=== PATIENT | male | born 1935 | race Caucasian/White ===

== ENCOUNTER → 2019-02-26 | Outpatient (CLI) | payer MEDICARE, OTHER ==
[~2019-02-26] MED LIST: ASCO500 PO; ASPI81EC; ATOR20; ATOR20 PO; COLCRYS0.6 MG PO; CRANBERRY CONC1 EACH PO; DONE5; FISH1000 PO; FLONASE ALLERG9.9 ML; HYDCHL12.5; HYDCHL12.5 PO; OCULAR NUTRITION PO; QUIN10; QUIN10 PO; Vitamin B Comple1 EA PO; WARF3; WARF3 PO
[2019-02-26 11:11] LABS: Stool Occult Bld Immuno 1 Positive (NEGATIVE)
== END | disposition home or self-care (01) ==
LOC: LAB SHORT 07:57 → LAB 07:57
PROVIDERS: Internal Medicine
DX: Z12.5 Encounter for screening for malignant neoplasm of prostate (principal); D50.0 Iron deficiency anemia secondary to blood loss (chronic); Z79.899 Other long term (current) drug therapy
CPT/HCPCS: 82274

== ENCOUNTER 2019-03-06 14:08 | Inpatient (IN) | payer MEDICARE, OTHER ==
[~2019-03-06] VITALS: Ht 177.8 cm; Wt 108.9 kg
[~2019-03-06 14:08] MED LIST changes: -ASPI81EC; -DONE5; -HYDCHL12.5 PO
[2019-03-06 14:59] LABS: BASOPHILS ABSOLUTE AUTO 0.02 K/mm3 (0.00-0.23); BASOPHILS PERCENT AUTO 0 % (0-2); EOSINOPHILS ABSOLUTE AUTO 0.22 K/mm3 (0.00-0.68); EOSINOPHILS PERCENT AUTO 4 % (0-6); Hematocrit 24.8 % (37.0-53.0); Hemoglobin 7.8 g/dL (13.5-17.5); IMMATURE GRAN ABSOLUTE AUTO 0.01 K/mm3 (0.00-0.10); IMMATURE GRAN PERCENT AUTO 0 % (0-1); LYMPHOCYTES ABSOLUTE AUTO 0.96 K/mm3 (0.84-5.20); LYMPHOCYTES PERCENT AUTO 19 % (21-46); MONOCYTES ABSOLUTE AUTO 0.43 K/mm3 (0.16-1.47); MONOCYTES PERCENT AUTO 9 % (4-13); Mean Corpuscular HGB Conc 31.5 g/dL (31.5-36.5); Mean Corpuscular Volume 102 fL (80-100); Mean Platelet Volume 10.4 fL (9.1-12.4); NEUTROPHILS ABSOLUTE AUTO 3.31 K/mm3 (1.96-9.15); NEUTROPHILS PERCENT AUTO 67 % (41-73); Platelet Count 141 K/mm3 (150-400); RDW Coefficient Variation 14.3 % (11.7-14.2); RDW Standard Deviation 53.6 fL (35.1-46.3); Red Blood Cell Count 2.44 M/mm3 (4.30-5.90); White Blood Cell Count 4.95 K/mm3 (4.00-11.30)
[2019-03-06 15:14] LABS: Alanine Aminotransfer (ALT/SGP 18 U/L (12-78); Albumin, Blood 3.5 g/dL (3.4-5.0); Albumin/Globulin Ratio 1.2 (0.8-1.8); Alk Phos 66 U/L (50-136); Anion Gap 3 mmol/L (6-16); Aspartate Aminotrans (AST/SGOT 27 U/L (12-37); Bilirubin, Total 0.7 mg/dL (0.1-1.0); Blood Urea Nitrogen 18 mg/dL (8-24); Bun/Creatinine Ratio 17.1 (12.0-20.0); CO2, Blood 31 mmol/L (21-32); Chloride, Blood 112 mmol/L (98-108); Creatinine, Blood 1.05 mg/dL (0.60-1.20); Globulin, Blood 2.9 g/dL (2.2-4.0); Glomerular Filtration Rate >60 (60-); Glucose, Blood 127 mg/dL (70-99); Potassium, Blood 3.7 mmol/L (3.5-5.5); Sodium, Blood 146 mmol/L (136-145); Total Protein, Blood 6.4 g/dL (6.4-8.2)
[2019-03-06 16:03] LABS: International Normalized Ratio 2.03; Prothrombin Time Results 20.2 Sec (9.7-11.5)
[2019-03-06] MEDS ORDERED: ALLO300 PO (18:29)
[2019-03-06] MEDS ORDERED: DONE5 PO (19:33)
[2019-03-06] MEDS ORDERED: HYDCHL12.5 PO (19:34)
[2019-03-06] MEDS ORDERED: Aspirin EC81 MG PO (19:46)
[2019-03-06 20:29] LABS: Hematocrit 24.6 % (37.0-53.0); Hemoglobin 7.6 g/dL (13.5-17.5)
[2019-03-07 03:56] LABS: BASOPHILS ABSOLUTE AUTO 0.03 K/mm3 (0.00-0.23); BASOPHILS PERCENT AUTO 1 % (0-2); EOSINOPHILS ABSOLUTE AUTO 0.26 K/mm3 (0.00-0.68); EOSINOPHILS PERCENT AUTO 4 % (0-6); Hematocrit 22.7 % (37.0-53.0); IMMATURE GRAN ABSOLUTE AUTO 0.02 K/mm3 (0.00-0.10); IMMATURE GRAN PERCENT AUTO 0 % (0-1); LYMPHOCYTES ABSOLUTE AUTO 1.29 K/mm3 (0.84-5.20); LYMPHOCYTES PERCENT AUTO 21 % (21-46); MONOCYTES ABSOLUTE AUTO 0.54 K/mm3 (0.16-1.47); MONOCYTES PERCENT AUTO 9 % (4-13); Mean Corpuscular HGB 31.3 pg (26.0-34.0); Mean Corpuscular HGB Conc 30.8 g/dL (31.5-36.5); Mean Corpuscular Volume 101 fL (80-100); Mean Platelet Volume 10.5 fL (9.1-12.4); NEUTROPHILS ABSOLUTE AUTO 3.89 K/mm3 (1.96-9.15); NEUTROPHILS PERCENT AUTO 65 % (41-73); Platelet Count 125 K/mm3 (150-400); RDW Coefficient Variation 14.2 % (11.7-14.2); Red Blood Cell Count 2.24 M/mm3 (4.30-5.90); White Blood Cell Count 6.03 K/mm3 (4.00-11.30)
[2019-03-07 04:10] LABS: International Normalized Ratio 2.22; Prothrombin Time Results 21.9 Sec (9.7-11.5)
--- NOTE | 2019-03-07 07:54 | NUR ---
SHIFT SUMMARY PT A&O X4 T/O SHIFT. PT ARRIVED TO UNIT FROM ER THIS SHIFT. PT STAND-PIVOT TO BED. PT IN ROOM UNTIL PT SETTLED. IV PROTONIX GTT THIS AM. 1 UNIT PRB TRANSFUSION STARTED PER DR. BAL. VSS; PT DENIED NAUSEA, PAIN, CP AND SOB T/O SHIFT. NO EMESIS OR BM. NPO POST MIDNIGHT. ORAL SWABS AT BEDSIDE. UP WITH FWW AND SBA; PT DENIES DIZZINESS. CPAP WHILE SLEEPING; CONT. OXIMETRY IN PLACE, SATS OVER 90% T/O SHIFT. TELEMTRY IN PLACE; SR/SB PER SALES REVIEW CLERK. CALL LIGHT IN REACH; PT DEMONSTRATES USE. REPORT TO DAY JORGE LUIS KAPADIA.
--- NOTE | 2019-03-07 14:37 | NUR ---
FFP STARTED JUST BEFORE PT TRANSPORTED TO OR WITH KANG PEPE VIA STRETCHER.
--- NOTE | 2019-03-07 14:58 | NUR ---
03/07/19 1458 Dev Scott 3-LEAD EKG REVIEWED WITH PHYSICIAN PRIOR TO START OF PROCEDURE.PATIENT CONFIRMS NPO STATUS AND AGREES WITH SCHEDULED PROCEDURE.History, Chart, Medications and Allergies reviewed before start of procedure. MONITOR INTACT WITH CONTINUOUS PULSE OXIMETRY AND INTERMITTENT BP. O2 VIA N/C INTACT THROUGHOUT SEDATION/PROCEDURE. Bite Block Placed
--- NOTE | 2019-03-07 17:46 | NUR ---
SHIFT SUMMARY OX3; 1 PERSON ASSIST WITH FWW TO BATHROOM. EGD WITH CLIPS PLACED TODAY; FAMILY ATTENTIVE AND AT BEDSIDE THROUGHOUT DAY. EATING AND DRINKING WELL. POSSIBLE DISCHARGE IN A.M.
--- NOTE | 2019-03-07 19:15 | NUR ---
OPENING NOTE RECEIVED REPORT FROM SILVESTRE KAPADIA AND ASSUMED PT CARE. PT IS RESTING IN BED, DENIES COMPLAINTS AT THIS TIME. VSS, SEE ASSESSMENT FOR DETAILS. PT STATES "I WAS HOPING TO GO HOME TODAY BUT MAYBE TOMORROW WILL BE THE DAY". EGD COMPLETED AND CLIPS PLACED TO SMALL BOWEL TODAY, NO S/SX OF BLEEDING AT THIS TIME. WILL CONTINUE TO MONITOR AND WILL CONTINUE PLAN OF CARE. CALL LIGHT AND BELONGINGS IN REACH.
[2019-03-07 22:11] LABS: Hematocrit 25.8 % (37.0-53.0); Hemoglobin 8.2 g/dL (13.5-17.5)
[2019-03-08 04:16] LABS: BASOPHILS ABSOLUTE AUTO 0.02 K/mm3 (0.00-0.23); BASOPHILS PERCENT AUTO 0 % (0-2); EOSINOPHILS ABSOLUTE AUTO 0.18 K/mm3 (0.00-0.68); EOSINOPHILS PERCENT AUTO 2 % (0-6); Hematocrit 26.2 % (37.0-53.0); Hemoglobin 8.2 g/dL (13.5-17.5); IMMATURE GRAN ABSOLUTE AUTO 0.02 K/mm3 (0.00-0.10); IMMATURE GRAN PERCENT AUTO 0 % (0-1); LYMPHOCYTES ABSOLUTE AUTO 0.88 K/mm3 (0.84-5.20); LYMPHOCYTES PERCENT AUTO 11 % (21-46); MONOCYTES ABSOLUTE AUTO 0.74 K/mm3 (0.16-1.47); MONOCYTES PERCENT AUTO 10 % (4-13); Mean Corpuscular HGB 31.1 pg (26.0-34.0); Mean Corpuscular HGB Conc 31.3 g/dL (31.5-36.5); Mean Corpuscular Volume 99 fL (80-100); Mean Platelet Volume 10.4 fL (9.1-12.4); NEUTROPHILS ABSOLUTE AUTO 5.91 K/mm3 (1.96-9.15); NEUTROPHILS PERCENT AUTO 76 % (41-73); Platelet Count 128 K/mm3 (150-400); RDW Coefficient Variation 15.3 % (11.7-14.2); RDW Standard Deviation 55.3 fL (35.1-46.3); Red Blood Cell Count 2.64 M/mm3 (4.30-5.90); White Blood Cell Count 7.75 K/mm3 (4.00-11.30)
[2019-03-08 04:37] LABS: Anion Gap 7 mmol/L (6-16); Blood Urea Nitrogen 18 mg/dL (8-24); Bun/Creatinine Ratio 16.1 (12.0-20.0); CO2, Blood 27 mmol/L (21-32); Chloride, Blood 110 mmol/L (98-108); Creatinine, Blood 1.12 mg/dL (0.60-1.20); Glomerular Filtration Rate >60 (60-); Glucose, Blood 98 mg/dL (70-99); Potassium, Blood 3.8 mmol/L (3.5-5.5); Sodium, Blood 144 mmol/L (136-145)
--- NOTE | 2019-03-08 06:18 | NUR ---
SHIFT SUMMARY: PATEINT HAD 1 EPISODE OF CONFUSION THIS SHIFT, TRYING TO GET OOB HE THOUGHT HE WAS LATE FOR A GOLF GAME. PATIENT EASILY REORIENTED, BED LOW AND LOCKED WITH EXIT ALARM ON. VSS, PATIENT REMOVES CPAP MASK IN HIS SLEEP SEVERAL TIMES.
[2019-03-08] MEDS ORDERED: OMEPRAZOLE MAGN20 MG PO (11:00)
[2019-03-08] MEDS ORDERED: Ferrous Sulfat325 M2 PO (11:02)
--- NOTE | 2019-03-08 12:50 | NUR ---
PT ALERT AND ORIENTED. VS STABLE. ORDERS FOR DISCHARGE. PT AND EDUCATED ABOUT DISCHARGE INSTRUCTIONS AND NEW MEDICATIONS. WRITTEN INFORMATION PROVIDED. IV'S REMOVED AND INTACT. PT TAKEN OUT BY WHEELCHAIR.
== END 2019-03-08 12:54 | disposition home or self-care (01) | DRG 378 ==
LOC: ER 14:08 → PCU 19:50
PROVIDERS: Physician Assistant; ADMIT Family Medicine
PROC: 0W3P8ZZ Control Bleeding in Gastrointestinal Tract, Via Natural or Artificial Opening Endoscopic (ICD-10-PCS; principal; 2019-03-06)
PROC: 30233N1 Transfusion of Nonautologous Red Blood Cells into Peripheral Vein, Percutaneous Approach (ICD-10-PCS; 2019-03-06)
PROC: 0DB68ZX Excision of Stomach, Via Natural or Artificial Opening Endoscopic, Diagnostic (ICD-10-PCS; 2019-03-06)
DX: K29.81 Duodenitis with bleeding (principal); Q21.1 Atrial septal defect; D62 Acute posthemorrhagic anemia; G47.33 Obstructive sleep apnea (adult) (pediatric); E78.5 Hyperlipidemia, unspecified; K31.7 Polyp of stomach and duodenum; I10 Essential (primary) hypertension; Z86.73 Personal history of transient ischemic attack (TIA), and cerebral infarction without residual deficits; Z79.01 Long term (current) use of anticoagulants; Z79.82 Long term (current) use of aspirin; Z80.42 Family history of malignant neoplasm of prostate; Z80.8 Family history of malignant neoplasm of other organs or systems
CPT/HCPCS: 36415; 36430; 74177; 80048; 80053; 85014; 85018; 85025; 85610; 85730; 86850; 86900; 86901; 86923; 93005; 93010; 94660; 94762; 96374-59; 99285-25; C9113; J1980; J2704; J7040; J7050; J7120; P9016; P9059; Q9967

== ENCOUNTER 2019-03-12 15:01 | Inpatient (IN) | payer MEDICARE, OTHER ==
[~2019-03-12] VITALS: Ht 177.8 cm; Wt 109.0 kg
[~2019-03-12 15:01] MED LIST changes: +ALLO300 PO; -ATOR20 PO; +Aspirin EC81 MG PO; +DONE5 PO; +Ferrous Sulfat325 M2 PO; +OMEPRAZOLE MAGN20 MG PO; -QUIN10 PO
[2019-03-12 15:32] LABS: BASOPHILS ABSOLUTE AUTO 0.03 K/mm3 (0.00-0.23); BASOPHILS PERCENT AUTO 1 % (0-2); EOSINOPHILS ABSOLUTE AUTO 0.26 K/mm3 (0.00-0.68); EOSINOPHILS PERCENT AUTO 4 % (0-6); Hematocrit 26.3 % (37.0-53.0); Hemoglobin 7.9 g/dL (13.5-17.5); IMMATURE GRAN ABSOLUTE AUTO 0.02 K/mm3 (0.00-0.10); IMMATURE GRAN PERCENT AUTO 0 % (0-1); LYMPHOCYTES ABSOLUTE AUTO 1.44 K/mm3 (0.84-5.20); LYMPHOCYTES PERCENT AUTO 22 % (21-46); MONOCYTES ABSOLUTE AUTO 0.74 K/mm3 (0.16-1.47); MONOCYTES PERCENT AUTO 11 % (4-13); Mean Corpuscular HGB 30.6 pg (26.0-34.0); Mean Platelet Volume 9.9 fL (9.1-12.4); NEUTROPHILS ABSOLUTE AUTO 4.09 K/mm3 (1.96-9.15); NEUTROPHILS PERCENT AUTO 62 % (41-73); Platelet Count 139 K/mm3 (150-400); RDW Coefficient Variation 15.7 % (11.7-14.2); RDW Standard Deviation 58.4 fL (35.1-46.3); Red Blood Cell Count 2.58 M/mm3 (4.30-5.90); White Blood Cell Count 6.58 K/mm3 (4.00-11.30)
[2019-03-12 15:33] LABS: Mean Corpuscular Volume 102 fL (80-100)
[2019-03-12 15:52] LABS: International Normalized Ratio 2.09; Prothrombin Time Results 20.7 Sec (9.7-11.5)
[2019-03-12 15:58] LABS: Alanine Aminotransfer (ALT/SGP 15 U/L (12-78); Albumin, Blood 3.3 g/dL (3.4-5.0); Albumin/Globulin Ratio 1.1 (0.8-1.8); Alk Phos 71 U/L (50-136); Anion Gap 6 mmol/L (6-16); Aspartate Aminotrans (AST/SGOT 17 U/L (12-37); Bilirubin, Total 0.8 mg/dL (0.1-1.0); Blood Urea Nitrogen 15 mg/dL (8-24); Bun/Creatinine Ratio 13.8 (12.0-20.0); CO2, Blood 26 mmol/L (21-32); Chloride, Blood 110 mmol/L (98-108); Creatinine, Blood 1.09 mg/dL (0.60-1.20); Globulin, Blood 3.1 g/dL (2.2-4.0); Glomerular Filtration Rate >60 (60-); Glucose, Blood 77 mg/dL (70-99); Potassium, Blood 3.7 mmol/L (3.5-5.5); Sodium, Blood 142 mmol/L (136-145); Total Protein, Blood 6.4 g/dL (6.4-8.2)
[2019-03-12] MEDS ORDERED: QUIN10 PO (18:40)
[2019-03-12] MEDS ORDERED: HYDCHL12.5 PO (18:41)
[2019-03-12] MEDS ORDERED: ATOR20 PO (18:42)
[2019-03-12] MEDS ORDERED: DONEPEZIL HCL5 M1 PO (18:42)
[2019-03-12] MEDS ORDERED: ALLO300 PO (18:44)
--- NOTE | 2019-03-12 20:00 | NUR ---
ASSUMED CARE OF PT AT 1915. REPORT RECEIVED AT BEDSIDE. PT PRESENTS IN BED. ON OXYGEN PER NASAL CANNULA WHEREAS SHE IS MAINTAINING SATURATIONS > 90 PERCENT. PT CURRENTLY BACK ON BIPAP. TOLERATING THIS FAIR. PT IS FIDGETY WITH HER HANDS DOES PASSIVELY TRY TO DISLODGE MASK THOUGH DOES NOT MAKE MUCH PROGRESS IN REMOVING MASK. PT ONLY CAN APPROPRIATELY ANSWER SIMPLIFIED QUESTIONS. WILL REVIEW CHART AND PLAN OF CARE.
--- NOTE | 2019-03-12 22:34 | NUR ---
PT TRANSPORTED TO [facility]. AGREES WITH PLANNED PROCEDURE. DR. GONZALEZ IN TO EVALUATE PT. AT BEDSIDE.
--- NOTE | 2019-03-12 22:49 | NUR ---
03/12/19 2249 [facility] CASE WITH DR. GONZALEZ. SEE ANETHESIA RECORD FOR CARE.
--- NOTE | 2019-03-13 01:19 | NUR ---
PCU IN ICU ASSUMED CARE PATIENT ALERT AND ORIENTED X4. VSS. NO S/SX OF BLEEDING AT THIS TIME. MD MARES TO ROOM. EDUCATED PATIENT ON SCOPE FINDINGS AND ENCOURAGED PATIENT TO TAKE CLEAR LIQUID FLUIDS AND INFORMED HIM THAT HE WOULD BE IN HOSPITAL FOR 3 DAYS ON PROTONIX GTT DUE TO GI BLEED (SEE PICTURES IN CHART). PATIENT DENIES PAIN AND IS IN NO ACUTE DISTRESS. REPORTED OFF TO ELMIRA KAPADIA.
--- NOTE | 2019-03-13 01:25 | NUR ---
ASSUMED CARE OF PT AT 0100 THIS AM. REPORT RECEIVED WELL THIS RN WAS IN ROOM WHEN PT ARRIVED AND WAS PART OF OR REPORT. PT ALERT AND ORIENTED UPON GREETING. IS CURRENTLY WEARING CPAP WITH 2 LITER NASAL CANNULA. ON PROTONIX DRIP AT 8MG PER HOUR. PT ABLE TO REST WITHOUT COMPLAINTS. NO ACTIVE S/S BLEEDING. PASSES FLATUS. WILL REVIEW CHART AND PLAN OF CARE FOR THIS PT.
--- NOTE | 2019-03-13 03:11 | NUR ---
SPOKE WITH DR GIL ON PHONE CONCERNING THAT PT HAD NOT RECEIVED UNIT PRBC'S PIOR TO GOING FOR SCOPE. OK RECEIVED TO DO AM LABS AND EVALUATE HBG BEFORE GIVING UNIT. PT CURRENTLY RESTING IN BED.
[2019-03-13 04:01] LABS: BASOPHILS ABSOLUTE AUTO 0.03 K/mm3 (0.00-0.23); BASOPHILS PERCENT AUTO 1 % (0-2); EOSINOPHILS ABSOLUTE AUTO 0.24 K/mm3 (0.00-0.68); EOSINOPHILS PERCENT AUTO 4 % (0-6); Hematocrit 23.1 % (37.0-53.0); Hemoglobin 7.1 g/dL (13.5-17.5); IMMATURE GRAN ABSOLUTE AUTO 0.01 K/mm3 (0.00-0.10); IMMATURE GRAN PERCENT AUTO 0 % (0-1); LYMPHOCYTES ABSOLUTE AUTO 1.03 K/mm3 (0.84-5.20); LYMPHOCYTES PERCENT AUTO 17 % (21-46); MONOCYTES ABSOLUTE AUTO 0.63 K/mm3 (0.16-1.47); MONOCYTES PERCENT AUTO 11 % (4-13); Mean Corpuscular HGB 30.9 pg (26.0-34.0); Mean Corpuscular HGB Conc 30.7 g/dL (31.5-36.5); Mean Corpuscular Volume 100 fL (80-100); Mean Platelet Volume 10.3 fL (9.1-12.4); NEUTROPHILS ABSOLUTE AUTO 4.02 K/mm3 (1.96-9.15); NEUTROPHILS PERCENT AUTO 67 % (41-73); Platelet Count 119 K/mm3 (150-400); RDW Coefficient Variation 15.8 % (11.7-14.2); RDW Standard Deviation 57.4 fL (35.1-46.3); White Blood Cell Count 5.96 K/mm3 (4.00-11.30)
[2019-03-13 04:14] LABS: International Normalized Ratio 1.88; Prothrombin Time Results 18.8 Sec (9.7-11.5)
[2019-03-13 04:18] LABS: Anion Gap 5 mmol/L (6-16); Blood Urea Nitrogen 14 mg/dL (8-24); Bun/Creatinine Ratio 12.8 (12.0-20.0); CO2, Blood 28 mmol/L (21-32); Calcium, Blood 7.9 mg/dL (8.5-10.1); Chloride, Blood 110 mmol/L (98-108); Creatinine, Blood 1.09 mg/dL (0.60-1.20); Glomerular Filtration Rate >60 (60-); Glucose, Blood 97 mg/dL (70-99); Potassium, Blood 3.6 mmol/L (3.5-5.5); Sodium, Blood 143 mmol/L (136-145)
--- NOTE | 2019-03-13 05:54 | NUR ---
PT RECEIVING ONE UNIT PRBC'S FOR HGB 7.1 THIS DOWN FROM PREVIOUS 7.9 HBG. PT MOVES HIMSELF ABOUT IN BED ON HIS OWN. USES CPAP HE DOES AT HOME WITH 2 LITER BLEED IN. PT DENIES PAIN OR DISTESS. NO S/S BLEEDING. WILL CONTINUE TO MONITOR PT, AND WILL REPORT OFF TO ONCOMING RN.
--- NOTE | 2019-03-13 08:58 | NUR ---
REPORT GIVEN TO KANG NUNEZ, WHOM WILL ASSUME CARE OF PT WHEN TRANSFERRED TO PCU ROOM 14.
--- NOTE | 2019-03-13 09:17 | NUR ---
PT TRANSFERRED TO PCU ROOM 14 VIA WHEELCHAIR WITH COLETTE KRAUSE.
--- NOTE | 2019-03-13 11:36 | NUR ---
PT HAD 6 BEAT RUN VTACH, PT ASYMPTOMATIC. SITTING IN BED. DENIES CONCERNS, VISITING WITH AT BEDSIDE. DISCCUSSED WITH DEVELOPMENTAL SPECIALIST.
[2019-03-13 13:24] LABS: Hematocrit 26.7 % (37.0-53.0); Hemoglobin 8.4 g/dL (13.5-17.5)
--- NOTE | 2019-03-13 18:13 | NUR ---
PT PLEASANT TODAY. DENIES PAIN. DID GET UP AND WALK SBA TO LEAD QA ANALYST AND BACK. SLOW, BUT PRETTY STEADY. PT IS AMBITIOUS. STATES STILL DARK STOOL. DOES TAKE IRON. REMAINS ON CLEAR LIQUID DIET. NO OTHER CONCERNS AT THIS TIME. BED IN LOW POSITION, PT IN CHAIR AT THIS TIME. CALL LITE IN REACH. CALLS APPROP
[2019-03-14 06:03] LABS: BASOPHILS ABSOLUTE AUTO 0.03 K/mm3 (0.00-0.23); BASOPHILS PERCENT AUTO 1 % (0-2); EOSINOPHILS ABSOLUTE AUTO 0.26 K/mm3 (0.00-0.68); EOSINOPHILS PERCENT AUTO 5 % (0-6); Hemoglobin 7.9 g/dL (13.5-17.5); IMMATURE GRAN ABSOLUTE AUTO 0.01 K/mm3 (0.00-0.10); IMMATURE GRAN PERCENT AUTO 0 % (0-1); LYMPHOCYTES PERCENT AUTO 18 % (21-46); MONOCYTES ABSOLUTE AUTO 0.49 K/mm3 (0.16-1.47); MONOCYTES PERCENT AUTO 9 % (4-13); Mean Corpuscular HGB 31.2 pg (26.0-34.0); Mean Corpuscular HGB Conc 31.6 g/dL (31.5-36.5); Mean Corpuscular Volume 99 fL (80-100); Mean Platelet Volume 10.6 fL (9.1-12.4); NEUTROPHILS PERCENT AUTO 68 % (41-73); Platelet Count 126 K/mm3 (150-400); RDW Coefficient Variation 15.5 % (11.7-14.2); RDW Standard Deviation 55.2 fL (35.1-46.3); Red Blood Cell Count 2.53 M/mm3 (4.30-5.90); White Blood Cell Count 5.49 K/mm3 (4.00-11.30)
--- NOTE | 2019-03-14 06:04 | NUR ---
SUMMARY: NO ACUTE CHANGE TONIGHT. PT VSS. NO EMESIS, BM TONIGHT. PT HAS DENIED PAIN, IS A/O. WORE HOME CPAP FOR SLEEP. TELE WNL. PROTONIX DRIP CONTINUES TO INFUSE. NO SAFETY CONCERNS AT THIS TIME. WILL REPORT TO DAY RN.
[2019-03-14 06:21] LABS: Anion Gap 6 mmol/L (6-16); Blood Urea Nitrogen 13 mg/dL (8-24); Bun/Creatinine Ratio 11.7 (12.0-20.0); CO2, Blood 27 mmol/L (21-32); Chloride, Blood 110 mmol/L (98-108); Creatinine, Blood 1.11 mg/dL (0.60-1.20); Glomerular Filtration Rate >60 (60-); Glucose, Blood 94 mg/dL (70-99); Phosphorus, Blood 3.1 mg/dL (2.5-4.9); Potassium, Blood 3.6 mmol/L (3.5-5.5); Sodium, Blood 143 mmol/L (136-145)
--- NOTE | 2019-03-14 09:15 | NUR ---
PT PLEASANT COOP A/O TALKATIVE. DENIES PAIN. H/R REG, NO MURMER NOTED. PER TELE: NSR AT 64. 1' BLOCK. LUNGS CLEAR, RESP EASY, UNLABORED. ON R.A. BT X4 LAST BM YEST. PT STATES DARK. VOIDS PER BATHROOM. BED IN LOW POSITOIN, CALL LITE IN REACH, CALLS APPROP. CONTINUES ON PROTONIX DRIP.
[2019-03-14 12:21] LABS: Hemoglobin 7.8 g/dL (13.5-17.5)
--- NOTE | 2019-03-14 18:37 | NUR ---
PT PLEASANT TODAY. HAS BEEN IN AND OUT OF CHAIR. SBA. WALKS TO BATHROOM DENIES SOB. STATES DR MARES TO ADVANCE DIET TO PUREE. STATES USING GENTLE INCREASE ON DIET. AT BEDSIDE. NO OTHER CONCERNS AT THIS TIME. PT IN CHAIR, CALL LITE IN REACH, CALLS APPROP
--- NOTE | 2019-03-14 18:48 | NUR ---
FITNESS SALES ASSOCIATE JOHN CALLED, PT C/O HEADACHE. I GAVE TYLENOL PER EMAR.
[2019-03-14 22:19] LABS: Hematocrit 24.7 % (37.0-53.0); Hemoglobin 7.8 g/dL (13.5-17.5)
--- NOTE | 2019-03-14 22:20 | NUR ---
Assumed care of pt at approx 1900. VSS, pt sitting in chair, alert and oriented. Pt in no apparent sign of distress. Pt responds to questions appropriately, uses call light appropriately. Assisted pt to bed, pt with steady gait, denies chest pain, denies sob with ambulation, denies dizzy or lightheadedness. Pt compliant with cpap at night and uses on his own. See shift assessment for detailed assessment. At approx 2100 this RN was notified by telephone recorder that pt converted to AFIB at 1830. This RN went to pt room, pt continues to deny any chest discomfort, denies dizzy or lightheadedness. HR in 70's per telephone recorder, barking machine feeder notifed of change in rhythm. Pt with a 3.1 second pause. Provider, Elroy Sharma notified of Afib and 3.1 second pause, pt remains asymptomatic. While on phone with Elroy, pt with HR touched 40 then recovered to 50's and 69's, Elroy aware and orders recieved. Upon entrance in room at this time, pt sleeping with cpap on. Pt has history of MARIPOSA. BP of 111/69, HR 69, pt remains asymptomatic. EKG performed per Elroy Sharma orders, bolus LR given per orders. Will continue to monitor and update as appropriate.
[2019-03-14 22:33] LABS: Anion Gap 6 mmol/L (6-16); Blood Urea Nitrogen 13 mg/dL (8-24); Bun/Creatinine Ratio 11.9 (12.0-20.0); CO2, Blood 26 mmol/L (21-32); Chloride, Blood 111 mmol/L (98-108); Creatinine, Blood 1.09 mg/dL (0.60-1.20); Glomerular Filtration Rate >60 (60-); Glucose, Blood 83 mg/dL (70-99); Magnesium, Blood 1.8 mg/dL (1.6-2.4); Potassium, Blood 3.4 mmol/L (3.5-5.5); Sodium, Blood 143 mmol/L (136-145)
--- NOTE | 2019-03-15 05:04 | NUR ---
SHIFT SUMMARY: PATIENT CONVERTED TO AFIB AT APPROX 1830, NO HX OF AFIB FOUND IN CHART OR PER PATIENT. PATIENT ASYMPTOMATIC, VSS, CLIENT APPLICATION SUPPORT SPECIALIST CALLED WITH ORDERS RECIEVED. APPROX 0000 PATIENT CONVERTED BACK TO NSR AFTER A FEW 3 SECOUND PAUSES. PATEINT HAS OCCASIONAL DROPS IN HR TO 40'S, PATIENT USUSALLY SLEEPING WITH THE OCCURRANCES (MARIPOSA?). NO OTHER ISSUES NOTED, CALL LIGHT WITHIN REACH, VSS, BED LOW AND LOCKED WITH EXIT ALARM ON.
--- NOTE | 2019-03-15 14:29 | NUR ---
REPORT CALLED TO KANG CARRILLO. PT WILL BE TRANSFERED TO [facility] WITH TELE.
--- NOTE | 2019-03-15 17:32 | NUR ---
SHIFT SUMMARY PT WAS A TRANSFER FROM PCU THIS AFTERNOON. PT HAS HAD NO COMPLAINTS SINCE TRANSFERRING TO ROOM 308. NO REQUESTS. IV PROTONIX INFUSING PER ORDERS. PLANS FOR DISCHARGE TOMORROW. CALL LIGHT IN REACH. WILL CONTINUE TO MONITOR AND REPORT TO ONCOMING RN.
[2019-03-16 04:52] LABS: BASOPHILS ABSOLUTE AUTO 0.03 K/mm3 (0.00-0.23); BASOPHILS PERCENT AUTO 1 % (0-2); EOSINOPHILS ABSOLUTE AUTO 0.33 K/mm3 (0.00-0.68); EOSINOPHILS PERCENT AUTO 6 % (0-6); Hematocrit 24.7 % (37.0-53.0); Hemoglobin 7.7 g/dL (13.5-17.5); IMMATURE GRAN ABSOLUTE AUTO 0.02 K/mm3 (0.00-0.10); IMMATURE GRAN PERCENT AUTO 0 % (0-1); LYMPHOCYTES ABSOLUTE AUTO 1.32 K/mm3 (0.84-5.20); LYMPHOCYTES PERCENT AUTO 22 % (21-46); MONOCYTES ABSOLUTE AUTO 0.56 K/mm3 (0.16-1.47); MONOCYTES PERCENT AUTO 10 % (4-13); Mean Corpuscular HGB 30.4 pg (26.0-34.0); Mean Corpuscular HGB Conc 31.2 g/dL (31.5-36.5); Mean Corpuscular Volume 98 fL (80-100); Mean Platelet Volume 10.3 fL (9.1-12.4); NEUTROPHILS ABSOLUTE AUTO 3.63 K/mm3 (1.96-9.15); NEUTROPHILS PERCENT AUTO 62 % (41-73); Platelet Count 131 K/mm3 (150-400); RDW Coefficient Variation 15.4 % (11.7-14.2); RDW Standard Deviation 54.9 fL (35.1-46.3); Red Blood Cell Count 2.53 M/mm3 (4.30-5.90); White Blood Cell Count 5.89 K/mm3 (4.00-11.30)
[2019-03-16 05:08] LABS: Anion Gap 4 mmol/L (6-16); Blood Urea Nitrogen 11 mg/dL (8-24); Bun/Creatinine Ratio 9.8 (12.0-20.0); CO2, Blood 27 mmol/L (21-32); Chloride, Blood 112 mmol/L (98-108); Creatinine, Blood 1.12 mg/dL (0.60-1.20); Glomerular Filtration Rate >60 (60-); Glucose, Blood 91 mg/dL (70-99); Potassium, Blood 3.7 mmol/L (3.5-5.5); Sodium, Blood 143 mmol/L (136-145)
--- NOTE | 2019-03-16 06:07 | NUR ---
SHIFT SUMMARY PATIENT IS ALERT AND ORIENTED, RECIEVING CONTINUOUS PROTONIX DRIP. USES CALL LIGHT APPROPRIATELY. PT IS ON TELE. PT SLEPT WITH CPAP ON. PLAN IS FOR POSSIBLE DISCHARGE TODAY.
--- NOTE | 2019-03-16 12:35 | NUR ---
DISCHARGE SUMMARY SUDARSHAN DENIED PAIN, SBA IN ROOM WITH WALKER. DECLINED SNF PLACEMENT DUE TO FEELING STRONG. LOOKED PRETTY STEADY ON HIS FEET. STATES HE FEELS PREPARED TO GO HOME. EDUCATED ON HOME DIET OF ADVANCE TOLERATED. ONE BLACK BM THIS SHIFT PER PT. EDUCATED ON HOLDING ASPIRIN AND COUMADIN UNTIL SEE PCP. NEW RX FOR PRILOSEC FAXED TO HIS PHARMACY. PAPERWORK REVIEWED, PIV REMOVED, LEFT WITH VIA WHEELCHAIR
== END 2019-03-16 11:52 | disposition home or self-care (01) | DRG 378 ==
LOC: ER 15:01 → ERHOLD 15:02 → ICUE 15:02 → PCU 22:25 → MEDS 03-15 14:46
PROVIDERS: Hospitalist; Internal Medicine Gastroenterology; Nurse Practitioner Acute Care; Physician Assistant; ADMIT Family Medicine
PROC: 0DJ08ZZ Inspection of Upper Intestinal Tract, Via Natural or Artificial Opening Endoscopic (ICD-10-PCS; principal; 2019-03-12 19:00)
PROC: 30233N1 Transfusion of Nonautologous Red Blood Cells into Peripheral Vein, Percutaneous Approach (ICD-10-PCS; 2019-03-13)
PROC: 30233K1 Transfusion of Nonautologous Frozen Plasma into Peripheral Vein, Percutaneous Approach (ICD-10-PCS; 2019-03-13)
DX: K29.81 Duodenitis with bleeding (principal); Q21.1 Atrial septal defect; I74.8 Embolism and thrombosis of other arteries; D62 Acute posthemorrhagic anemia; K22.2 Esophageal obstruction; K44.9 Diaphragmatic hernia without obstruction or gangrene; G47.33 Obstructive sleep apnea (adult) (pediatric); K64.9 Unspecified hemorrhoids; E78.5 Hyperlipidemia, unspecified; M10.9 Gout, unspecified; D69.6 Thrombocytopenia, unspecified; I10 Essential (primary) hypertension; G31.84 Mild cognitive impairment of uncertain or unknown etiology
CPT/HCPCS: 36415; 80048; 80053; 80069; 82272; 82330; 83735; 85014; 85018; 85025; 85610; 86850; 86900; 86901; 86923; 93005; 93010; 94660; 94762; 96365; 96366; 99285-25; C9113; J0171; J0360; J2405; J2704; J3010; J3475; J3480; J7120; P9016; P9059

== ENCOUNTER 2019-04-03 12:12 | Emergency (ER) | payer MEDICARE, OTHER ==
[~2019-04-03] VITALS: Ht 177.8 cm; Wt 103.4 kg
[~2019-04-03 12:12] MED LIST changes: +ATOR20 PO; +DONEPEZIL HCL5 M1 PO; +HYDCHL12.5 PO; +QUIN10 PO
[2019-04-03 12:57] LABS: BASOPHILS ABSOLUTE AUTO 0.03 K/mm3 (0.00-0.23); BASOPHILS PERCENT AUTO 1 % (0-2); EOSINOPHILS ABSOLUTE AUTO 0.27 K/mm3 (0.00-0.68); EOSINOPHILS PERCENT AUTO 4 % (0-6); Hematocrit 27.8 % (37.0-53.0); Hemoglobin 8.4 g/dL (13.5-17.5); IMMATURE GRAN ABSOLUTE AUTO 0.01 K/mm3 (0.00-0.10); IMMATURE GRAN PERCENT AUTO 0 % (0-1); LYMPHOCYTES ABSOLUTE AUTO 1.46 K/mm3 (0.84-5.20); LYMPHOCYTES PERCENT AUTO 23 % (21-46); MONOCYTES ABSOLUTE AUTO 0.68 K/mm3 (0.16-1.47); MONOCYTES PERCENT AUTO 11 % (4-13); Mean Corpuscular HGB 29.7 pg (26.0-34.0); Mean Corpuscular HGB Conc 30.2 g/dL (31.5-36.5); Mean Corpuscular Volume 98 fL (80-100); Mean Platelet Volume 10.6 fL (9.1-12.4); NEUTROPHILS ABSOLUTE AUTO 3.91 K/mm3 (1.96-9.15); NEUTROPHILS PERCENT AUTO 61 % (41-73); Platelet Count 159 K/mm3 (150-400); RDW Standard Deviation 54.5 fL (35.1-46.3); Red Blood Cell Count 2.83 M/mm3 (4.30-5.90); White Blood Cell Count 6.36 K/mm3 (4.00-11.30)
[2019-04-03 13:13] LABS: International Normalized Ratio 1.08; Prothrombin Time Results 11.4 Sec (9.7-11.5)
[2019-04-03 13:17] LABS: Alanine Aminotransfer (ALT/SGP 12 U/L (12-78); Albumin, Blood 3.6 g/dL (3.4-5.0); Albumin/Globulin Ratio 1.1 (0.8-1.8); Alk Phos 71 U/L (50-136); Anion Gap 7 mmol/L (6-16); Aspartate Aminotrans (AST/SGOT 21 U/L (12-37); Bilirubin, Total 0.5 mg/dL (0.1-1.0); Blood Urea Nitrogen 16 mg/dL (8-24); Bun/Creatinine Ratio 14.8 (12.0-20.0); CO2, Blood 25 mmol/L (21-32); Calcium, Blood 8.2 mg/dL (8.5-10.1); Chloride, Blood 109 mmol/L (98-108); Creatinine, Blood 1.08 mg/dL (0.60-1.20); Globulin, Blood 3.4 g/dL (2.2-4.0); Glomerular Filtration Rate >60 (60-); Glucose, Blood 75 mg/dL (70-99); Magnesium, Blood 1.9 mg/dL (1.6-2.4); Potassium, Blood 4.2 mmol/L (3.5-5.5); Sodium, Blood 141 mmol/L (136-145)
[2019-04-03 18:45] LABS: Hemoglobin 7.7 g/dL (13.5-17.5)
== END 2019-04-03 19:55 | disposition short-term general hospital (02) ==
LOC: ER 12:12
PROVIDERS: Emergency Medicine; Physician Assistant
DX: K92.2 Gastrointestinal hemorrhage, unspecified (principal); D50.0 Iron deficiency anemia secondary to blood loss (chronic); I10 Essential (primary) hypertension; M10.9 Gout, unspecified; E78.5 Hyperlipidemia, unspecified; Z86.73 Personal history of transient ischemic attack (TIA), and cerebral infarction without residual deficits; Z79.899 Other long term (current) drug therapy
CPT/HCPCS: 36415; 80053; 82272; 83690; 83735; 85014; 85018; 85025; 85610; 85730; 86850; 86900; 86901; 93005; 93010; 96365; 96366; 96376; 99285-25; C9113

== ENCOUNTER 2019-05-13 05:04 | Emergency (ER) | payer MEDICARE, OTHER ==
[~2019-05-13] VITALS: Ht 177.8 cm; Wt 107.0 kg
[2019-05-13 05:54] LABS: BASOPHILS ABSOLUTE AUTO 0.04 K/mm3 (0.00-0.23); BASOPHILS PERCENT AUTO 1 % (0-2); EOSINOPHILS ABSOLUTE AUTO 0.22 K/mm3 (0.00-0.68); EOSINOPHILS PERCENT AUTO 3 % (0-6); Hematocrit 30.8 % (37.0-53.0); Hemoglobin 9.2 g/dL (13.5-17.5); IMMATURE GRAN ABSOLUTE AUTO 0.02 K/mm3 (0.00-0.10); IMMATURE GRAN PERCENT AUTO 0 % (0-1); LYMPHOCYTES ABSOLUTE AUTO 1.34 K/mm3 (0.84-5.20); LYMPHOCYTES PERCENT AUTO 19 % (21-46); MONOCYTES ABSOLUTE AUTO 0.66 K/mm3 (0.16-1.47); MONOCYTES PERCENT AUTO 9 % (4-13); Mean Corpuscular HGB 26.4 pg (26.0-34.0); Mean Corpuscular HGB Conc 29.9 g/dL (31.5-36.5); Mean Corpuscular Volume 89 fL (80-100); Mean Platelet Volume 10.7 fL (9.1-12.4); NEUTROPHILS ABSOLUTE AUTO 4.78 K/mm3 (1.96-9.15); NEUTROPHILS PERCENT AUTO 68 % (41-73); Platelet Count 142 K/mm3 (150-400); RDW Coefficient Variation 15.9 % (11.7-14.2); RDW Standard Deviation 51.5 fL (35.1-46.3); Red Blood Cell Count 3.48 M/mm3 (4.30-5.90); White Blood Cell Count 7.06 K/mm3 (4.00-11.30)
[2019-05-13 06:13] LABS: Alanine Aminotransfer (ALT/SGP 11 U/L (12-78); Albumin, Blood 3.7 g/dL (3.4-5.0); Albumin/Globulin Ratio 1.1 (0.8-1.8); Alk Phos 92 U/L (50-136); Anion Gap 6 mmol/L (6-16); Aspartate Aminotrans (AST/SGOT 25 U/L (12-37); Blood Urea Nitrogen 14 mg/dL (8-24); Bun/Creatinine Ratio 12.3 (12.0-20.0); CO2, Blood 26 mmol/L (21-32); Calcium, Blood 8.3 mg/dL (8.5-10.1); Chloride, Blood 112 mmol/L (98-108); Creatinine, Blood 1.14 mg/dL (0.60-1.20); Globulin, Blood 3.5 g/dL (2.2-4.0); Glomerular Filtration Rate >60 (60-); Glucose, Blood 107 mg/dL (70-99); Potassium, Blood 3.8 mmol/L (3.5-5.5); Sodium, Blood 144 mmol/L (136-145); Total Protein, Blood 7.2 g/dL (6.4-8.2)
[2019-05-13 06:14] LABS: International Normalized Ratio 1.11; Prothrombin Time Results 11.7 Sec (9.7-11.5)
[2019-05-13] MEDS ORDERED: Colace100 MG PO (06:34)
== END 2019-05-13 06:50 | disposition home or self-care (01) ==
LOC: ER 05:04
PROVIDERS: Emergency Medicine
DX: K60.2 Anal fissure, unspecified (principal); K92.1 Melena; Z79.899 Other long term (current) drug therapy; I10 Essential (primary) hypertension; E78.5 Hyperlipidemia, unspecified; Z86.73 Personal history of transient ischemic attack (TIA), and cerebral infarction without residual deficits; I48.91 Unspecified atrial fibrillation; Z85.828 Personal history of other malignant neoplasm of skin; Z85.46 Personal history of malignant neoplasm of prostate
CPT/HCPCS: 80053; 83605; 85025; 85610; 99283

== ENCOUNTER 2019-05-19 14:46 | Inpatient (IN) | payer MEDICARE, OTHER ==
[~2019-05-19] VITALS: Ht 177.8 cm; Wt 106.0 kg
[~2019-05-19 14:46] MED LIST changes: +Colace100 MG PO
[2019-05-19 15:07] LABS: PCO2 Arterial 43.2 mmHg (35-45); PO2 Arterial 130 mmHg (80-100); pH Blood Arterial 7.41 (7.35-7.45)
[2019-05-19 15:19] LABS: BASOPHILS ABSOLUTE AUTO 0.04 K/mm3 (0.00-0.23); BASOPHILS PERCENT AUTO 0 % (0-2); EOSINOPHILS ABSOLUTE AUTO 0.18 K/mm3 (0.00-0.68); EOSINOPHILS PERCENT AUTO 2 % (0-6); Hemoglobin 9.2 g/dL (13.5-17.5); IMMATURE GRAN PERCENT AUTO 1 % (0-1); LYMPHOCYTES ABSOLUTE AUTO 2.75 K/mm3 (0.84-5.20); LYMPHOCYTES PERCENT AUTO 29 % (21-46); MONOCYTES ABSOLUTE AUTO 0.81 K/mm3 (0.16-1.47); MONOCYTES PERCENT AUTO 9 % (4-13); Mean Corpuscular HGB 26.8 pg (26.0-34.0); Mean Corpuscular HGB Conc 29.7 g/dL (31.5-36.5); Mean Corpuscular Volume 90 fL (80-100); Mean Platelet Volume 11.4 fL (9.1-12.4); NEUTROPHILS ABSOLUTE AUTO 5.54 K/mm3 (1.96-9.15); NEUTROPHILS PERCENT AUTO 59 % (41-73); Platelet Count 155 K/mm3 (150-400); RDW Coefficient Variation 18.4 % (11.7-14.2); RDW Standard Deviation 55.6 fL (35.1-46.3); Red Blood Cell Count 3.43 M/mm3 (4.30-5.90); White Blood Cell Count 9.42 K/mm3 (4.00-11.30)
[2019-05-19 15:34] LABS: International Normalized Ratio 1.1; Prothrombin Time Results 11.6 Sec (9.7-11.5)
[2019-05-19 15:41] LABS: Alanine Aminotransfer (ALT/SGP 15 U/L (12-78); Albumin, Blood 3.6 g/dL (3.4-5.0); Alk Phos 88 U/L (50-136); Anion Gap 8 mmol/L (6-16); Aspartate Aminotrans (AST/SGOT 24 U/L (12-37); Bilirubin, Total 0.7 mg/dL (0.1-1.0); Blood Urea Nitrogen 18 mg/dL (8-24); Bun/Creatinine Ratio 15.7 (12.0-20.0); CO2, Blood 26 mmol/L (21-32); Calcium, Blood 8.3 mg/dL (8.5-10.1); Chloride, Blood 110 mmol/L (98-108); Creatinine, Blood 1.15 mg/dL (0.60-1.20); Ethanol (Alcohol), Blood, Med <3 mg/dL; Globulin, Blood 3.5 g/dL (2.2-4.0); Glomerular Filtration Rate >60 (60-); Glucose, Blood 136 mg/dL (70-99); Potassium, Blood 3.9 mmol/L (3.5-5.5); Sodium, Blood 144 mmol/L (136-145); Total Protein, Blood 7.1 g/dL (6.4-8.2)
[2019-05-19 23:33] LABS: U Amphetamine Screen Not Detected; U Barbituate Screen Not Detected; U Benzodiazapine Screen Not Detected; U Buprenorphine Screen Not Detected; U Cannabinoids Screen Not Detected; U Cocaine Screen Not Detected; U Methadone Screen Not Detected; U Methamphetamine Screen Not Detected; U Opiates Screen Not Detected; U Oxycodone Screen Not Detected; U Phencyclidine Screen Not Detected; U Propoxyphene Screen Not Detected
--- NOTE | 2019-05-19 23:37 | NUR ---
provider communication 0609 DR. BENITEZ CALLED TO CLARIFY SUBLIMAZE PATCH ORDER, MADE AWARE OF PHARMASICT'S CONCERNS OF STARTING A PATCH WHEN PT NARCOTIC NAIVE; CURRENT PAIN AND RESPIRATORY MANAGEMENT DISCUSSED. ORDER TO DC PATCH RECIEVED.
--- NOTE | 2019-05-20 04:09 | NUR ---
SHIFT SUMMARY PT A&O X4 T/O SHIFT. S/P L RIB FX'S. PAIN MANAGED PER EMAR. O2 VIA NC WHEN AWAKE AT 2L, 1L BLEED INTO CPAP WHEN ASLEEP. CONT. OX IN PLACE; O2 SATS OVER 92%. ABRASIONS ON EXT CLEANED AND DRESSED. BILAT HEELS FLOATED. CALL LIGHT IN REACH. WCTM UNTIL REPORT TO DAY SHIFT RN.
--- NOTE | 2019-05-20 07:08 | NUR ---
pt voided [address] camargo by to see him this am
--- NOTE | 2019-05-20 08:54 | NUR ---
DR RUDOLPH BY TO SEE PT STARTED PT ON ORAL PAIN MEDS ALSO PLACED PAS ON R FOOT AND L LEG ELEV PT TO 45 DEGREE TO EAT PT UNABLE TO MYRIAM 90 DUE TO PAIN PLACED ON NC TO EAT BREAKFAST ENCOURAGED FOOD WITH PO PAIN MEDS PT ALSO TO HAVE CHEST XRAY
--- NOTE | 2019-05-20 10:25 | NUR ---
pt oob with physical therapy biox on 2 l nc with movement was 80% increased to 5 l at 95% used pillow to splint
--- NOTE | 2019-05-20 11:17 | NUR ---
pt went into bathroom to void with ot and back into the chair biox 95-96% pt visiting with
--- NOTE | 2019-05-20 12:06 | NUR ---
pt eating lunch po pain meds given pt wanting to get back into bed
--- NOTE | 2019-05-20 12:47 | NUR ---
put pt back on his cpap biox on 3l decreased when asleep was 88% currently 94-95% cpap has 2l bleed in
--- NOTE | 2019-05-20 15:15 | NUR ---
pt sleeping family at bedside
--- NOTE | 2019-05-20 18:27 | NUR ---
pt coughing after his ice cream stated he had phlegm stuck pt had a pillow for splinting asked pt if he feels like he needs to void last void was around 1130 encourage oral intake to thin the phlegm
--- NOTE | 2019-05-20 21:00 | NUR ---
FAMILY REPORTS PT HAVING DIFFICULTY MANAGING SECRETIONS.VERB HE DID OK WITH PUDDING, BUT FELT CHICKEN NOODLE SOUP GIVEN WITH ASSIST OF AND ICE CREAM CAUSED PT TO HAVE MUCUS AND BECAME ANXIOUS AND SOB WITH COUGH.PT WITH DISTANT HX OF CVA, BUT FAMILY DENY PT HAVING ANY RESIDUAL EFFECTS AND REPORT HE DOES NOT HAVE ANY DIFFICULTY WITH THIS AT HOME.FAMILY STATING THEY HAD BEEN WANTING RESP THERAPY TO ROOM. I ADVISED RT.I DISCUSSED WITH FAMILY TO BE SURE HOB IS FULLY UP WHEN PT IS TAKING ANY PO.PT ALSO WITH NO VOID NOTED SINCE APPROX 1130 AM AND PT DENIED URGE TO VOID. BLADDER SCANNED FOR GREATER THAN 700ML. SPOKE WITH FAMILY AND REPORTS PT VOIDS FREQUENTLY AT HOME. UNKNOWN IF HE EMPTIES WELL.NO IV FLUIDS ORDERED AND PT TAKING SMALL AMNT PO AT PRESENT. PT NOTED TO CALM AFTER ABLE TO MOBILIZE SECRETIONS AND ENC IS.PILLOW SPLINT COUGH.I CALLED DR BENITEZ REGARDING CONCERNS FOR ASPIRATION RISK. NOTIFIED OF ABOVE AND CONFIRMED HE DID NOT WANT SWALLOW EVAL OR CHANGE IN DIET. ALSO DISCUSSED CURRENT I/O AND CONFIRMED HE DID NOT WISH TO ORDER IV FLUIDS.RECEIVED ORDERS FOR FLOMAX,FOLLOW UP BLADDER SCANS AND STRAIGHT CATH PRN BLADDER SCAN GREATER THAN 1000 ML.I ALSO CONFIRMED HE WAS AWARE PT ON 3L AT REST,5 L WHEN 00B AND 2 L BLEED IN TO CPAP AT NIGHT.ALSO NOTED BILAT PLEURAL EFFUSIONS.RECEIVED ORDER FOR ALBUTERAL NEBS PRN.DISCUSSED ORDERS AND FOLLOW UP WITH FAMILY BEFORE THEY WENT HOME FOR THE NIGHT.
--- NOTE | 2019-05-21 06:04 | NUR ---
SUMMARY STRAIGHT CATH TONIGHT WITH 1000 ML RETURN DARK MIKIE STRONG SMELLING. ENC PO. PT REPORTING PAIN ADEQUATELY CONTROLLED. ALSO REPORTS HE FEELS BREATHING HAS IMPROVED.NO C/O CP OR SOB TONIGHT. PT CURRENTLY HAS BLADDER SCAN GREATER THAN 200 ML WITH NO URGE TO VOID. OUT TO RADIOLOGY FOR CXR PER BED.
--- NOTE | 2019-05-21 11:42 | NUR ---
DR. RUDOLPH ROUNDED ON PT. PLAN FOR PT TO REMAIN IN HOSPITAL TODAY AND RE-EVALUATE TOMORROW. WILL CONTINUE TO MONITOR.
--- NOTE | 2019-05-21 17:52 | NUR ---
BLADDER SCAN SHOWED >700ML IN BLADDER. PT REQUIRED STRAIGHT CATH TO EMPTY HIS BLADDER. PT TOLERATED WELL. DR. BENITEZ AWARE. WILL CONTINUE TO MONITOR.
--- NOTE | 2019-05-21 18:14 | NUR ---
SHIFT SUMMARY PAIN HAS BEEN MANAGED WITH PO PAIN MEDICATION THIS SHIFT. PT HAS BEEN ALERT AND ORIENTED UNTIL THIS EVENING. PT IS FORGETFUL OF HIS SURROUNDINGS BUT REORIENTES EASILY. PT'S DAUGHTER IS AT BEDSIDE AND REPORTS HE HAS SOME BASELINE CONFUSION AT HOME IN THE EVENINGS. PT IS A 1-2 ASSIST WHEN TRANFERING. PT USES A WALKER AND GAIT BELT. VSS. WILL MONITOR UNTIL REPORT TO ONCOMING RN.
--- NOTE | 2019-05-22 00:39 | NUR ---
PT WITH NO VOID TONIGHT.BLADDER SCANNED PER ASIC ENGINEER FOR 429mL.NOT REQUIRING STRAIGHT CATH YET PER PARAMETERS.WILL CONT TO MONITOR.
--- NOTE | 2019-05-22 01:29 | NUR ---
PT FOUND TRYING TO GET OUT OF BED. HELPED PT TRY TO USED URINAL WITH NO LUCK. HELPED PT BACK IN BED.
--- NOTE | 2019-05-22 03:58 | NUR ---
NOTIFIED DR BENITEZ PT TELE WITH 3.4 AND 3.2 SECOND PAUSE. ALSO MURMUR NOTED. ALSO NOTIFIED DR BENITEZ OF CONTINUED POOR PO INTAKE.NO VOID THIS SHIFT WITH NO URGE TO VOID, BUT GREATER THAN 500 ML PER SCAN. RECEIVED ORDR FOR IV FLUIDS.
[2019-05-22 06:19] LABS: BASOPHILS ABSOLUTE AUTO 0.02 K/mm3 (0.00-0.23); BASOPHILS PERCENT AUTO 0 % (0-2); EOSINOPHILS ABSOLUTE AUTO 0.14 K/mm3 (0.00-0.68); EOSINOPHILS PERCENT AUTO 2 % (0-6); Hematocrit 26.2 % (37.0-53.0); Hemoglobin 7.9 g/dL (13.5-17.5); IMMATURE GRAN ABSOLUTE AUTO 0.02 K/mm3 (0.00-0.10); IMMATURE GRAN PERCENT AUTO 0 % (0-1); LYMPHOCYTES ABSOLUTE AUTO 1.03 K/mm3 (0.84-5.20); LYMPHOCYTES PERCENT AUTO 12 % (21-46); MONOCYTES ABSOLUTE AUTO 0.88 K/mm3 (0.16-1.47); MONOCYTES PERCENT AUTO 10 % (4-13); Mean Corpuscular HGB 26.5 pg (26.0-34.0); Mean Corpuscular HGB Conc 30.2 g/dL (31.5-36.5); Mean Corpuscular Volume 88 fL (80-100); NEUTROPHILS PERCENT AUTO 76 % (41-73); Platelet Count 115 K/mm3 (150-400); RDW Coefficient Variation 18.6 % (11.7-14.2); RDW Standard Deviation 58.9 fL (35.1-46.3); Red Blood Cell Count 2.98 M/mm3 (4.30-5.90); White Blood Cell Count 8.59 K/mm3 (4.00-11.30)
[2019-05-22 06:37] LABS: Alanine Aminotransfer (ALT/SGP 12 U/L (12-78); Albumin, Blood 2.8 g/dL (3.4-5.0); Albumin/Globulin Ratio 0.9 (0.8-1.8); Alk Phos 62 U/L (50-136); Anion Gap 3 mmol/L (6-16); Aspartate Aminotrans (AST/SGOT 17 U/L (12-37); Bilirubin, Total 1.2 mg/dL (0.1-1.0); Blood Urea Nitrogen 13 mg/dL (8-24); Bun/Creatinine Ratio 11.9 (12.0-20.0); CO2, Blood 30 mmol/L (21-32); Calcium, Blood 7.8 mg/dL (8.5-10.1); Chloride, Blood 104 mmol/L (98-108); Creatinine, Blood 1.09 mg/dL (0.60-1.20); Globulin, Blood 3.2 g/dL (2.2-4.0); Glomerular Filtration Rate >60 (60-); Glucose, Blood 136 mg/dL (70-99); Magnesium, Blood 1.9 mg/dL (1.6-2.4); Sodium, Blood 137 mmol/L (136-145)
--- NOTE | 2019-05-22 06:53 | NUR ---
SUMMARY DR BENITEZ MADE ROUNDS. DISCUSSED I/O AND BLADDER SCANS. I WILL CATH PT BEFORE I LEAVE SHIFT.
--- NOTE | 2019-05-22 16:31 | NUR ---
DR. BENITEZ NOTIFIED OF DECREASED H&H. PT ASYMPTOMATIC. WILL CONTINUE TO MONITOR AT THIS TIME.
--- NOTE | 2019-05-22 18:44 | NUR ---
SHIFT SUMMARY PAIN HAS BEEN MANAGED WITH PO PAIN MEDICATION. PT IS A 2 PERSON ASSIST WITH TRANSFERS. PT HAS REQUIRED STRAIGHT CATHETERIZATION TO EMPTY BLADDER. BOWEL CARE STARTED, PT IS PASSING FLATUS. FAMILY HAS BEEN PRESENT AT THE BEDSIDE. PT IS STILL REQUIRING OXYGEN, O2 WAS WEANED TO 2L. VSS. WILL MONITOR UNTIL REPORT TO ONCOMING RN.
--- NOTE | 2019-05-22 19:14 | NUR ---
STRAIGHT CATH X2 FOR INABILITY TO VOID. PT TOLERATED WELL.
--- NOTE | 2019-05-23 00:36 | NUR ---
PT HAS YET TO VOID SINCE SHIFT CHANGE. PT ATTEMPTED TO USE URINAL, HOWEVER UNABLE TO VOID. BLADDER SCAN SHOWED >800. PT STRAIGHT CATHETERIZED FOR A TOTAL OF 800 ML OUT. WILL CONTINUE TO MONITOR.
--- NOTE | 2019-05-23 03:49 | NUR ---
AT APPROX 0249 PT WENT INTO 6 BEATS OF V-TACH. VITAL SIGNS STABLE. PT ASYMPTOMATIC. DR BENITEZ AWARE OF PREVIOUS EPISODES. WILL NOTIFY WHEN HE MAKES HIS MORNING ROUNDS.
[2019-05-23 04:33] LABS: BASOPHILS ABSOLUTE AUTO 0.03 K/mm3 (0.00-0.23); BASOPHILS PERCENT AUTO 0 % (0-2); EOSINOPHILS ABSOLUTE AUTO 0.21 K/mm3 (0.00-0.68); EOSINOPHILS PERCENT AUTO 3 % (0-6); Hematocrit 27.3 % (37.0-53.0); Hemoglobin 8.3 g/dL (13.5-17.5); IMMATURE GRAN ABSOLUTE AUTO 0.04 K/mm3 (0.00-0.10); IMMATURE GRAN PERCENT AUTO 1 % (0-1); LYMPHOCYTES ABSOLUTE AUTO 1.28 K/mm3 (0.84-5.20); LYMPHOCYTES PERCENT AUTO 15 % (21-46); MONOCYTES ABSOLUTE AUTO 0.77 K/mm3 (0.16-1.47); MONOCYTES PERCENT AUTO 9 % (4-13); Mean Corpuscular HGB 26.6 pg (26.0-34.0); Mean Corpuscular HGB Conc 30.4 g/dL (31.5-36.5); Mean Corpuscular Volume 88 fL (80-100); Mean Platelet Volume 11.1 fL (9.1-12.4); NEUTROPHILS ABSOLUTE AUTO 6.17 K/mm3 (1.96-9.15); NEUTROPHILS PERCENT AUTO 72 % (41-73); Platelet Count 146 K/mm3 (150-400); RDW Coefficient Variation 18.7 % (11.7-14.2); RDW Standard Deviation 58.8 fL (35.1-46.3); Red Blood Cell Count 3.12 M/mm3 (4.30-5.90)
[2019-05-23 04:54] LABS: Alanine Aminotransfer (ALT/SGP 11 U/L (12-78); Albumin, Blood 2.9 g/dL (3.4-5.0); Albumin/Globulin Ratio 0.9 (0.8-1.8); Alk Phos 73 U/L (50-136); Anion Gap 7 mmol/L (6-16); Aspartate Aminotrans (AST/SGOT 19 U/L (12-37); Bilirubin, Total 1.2 mg/dL (0.1-1.0); Blood Urea Nitrogen 12 mg/dL (8-24); Bun/Creatinine Ratio 11.7 (12.0-20.0); CO2, Blood 29 mmol/L (21-32); Calcium, Blood 7.8 mg/dL (8.5-10.1); Chloride, Blood 101 mmol/L (98-108); Creatinine, Blood 1.03 mg/dL (0.60-1.20); Globulin, Blood 3.4 g/dL (2.2-4.0); Glomerular Filtration Rate >60 (60-); Glucose, Blood 174 mg/dL (70-99); Potassium, Blood 3.8 mmol/L (3.5-5.5); Sodium, Blood 137 mmol/L (136-145); Total Protein, Blood 6.3 g/dL (6.4-8.2)
--- NOTE | 2019-05-23 05:49 | NUR ---
SHIFT SUMMARY: PT RESTING MOST OF SHIFT. BP ELEVATED T/O SHIFT. PT DENYING PAIN. ENCOURAGED TO DRINIK FLUIDS. TOTAL OF 1060 ML FOR INTAKE. BLADDER SCANNED AT APPROX 0030 SHOWED >800ML. PT STRAIGHT CATHED FOR A TOTAL OF 800ML OUT. PT UNABLE TO VOID, DEPSITE ATTEMPTING TO USE URINAL SEVERAL TIMES. WILL BLADDER SCAN AGAIN BEFORE SHIFT CHANGE. PT HAD ONE EPISODE OF 6 BEATS OF VTACH (SEE OTHER NOTE). PT ASYMPTOMATIC. PT CONFUSED ONCE TO SURROUNDINGS AND ATTEMPTED TO GET OUT OF BED. PT REORIENTS EASILY. PT OOB TO BSC WITH 2 ASSIST. NO BM THIS SHIFT.
--- NOTE | 2019-05-23 17:01 | NUR ---
SHIFT SUMMARY PT A&OX4, VSS, MOD ASSIST TO STAND BUT ONCE STABLE ON FEET CAN AMB W/SBA TO CHAIR AND BSC. MYRIAM PO, DENIES N&V. VOIDING WELL. PAIN MANAGED WITH 5 MG OXY. UP TO CHAIR T/O SHIFT. AT BEDSIDE.
--- NOTE | 2019-05-24 05:54 | NUR ---
SHIFT SUMMARY: PT HAS DONE WELL THIS SHIFT. 1-2 ASSIST W/FWW+GB TO BSC. VOIDING WELL AND HAVING LIQUID MUCOUSY STOOL. C/O PAIN ON LEFT SIDE ONCE AND MEDICATED WITH CARLA PER EMAR. TELE SHOWS A/FIB. PT DENYING CHEST PAIN AND SOB T/O SHIFT. PT ENCOURAGED TO DRINK FLUIDS AND USE INSCENTIVE SPIROMETER. PT DEMONSTRATED USE. PT GIVEN BEDBATH AND ORAL CARE THIS MORNING.
--- NOTE | 2019-05-24 20:16 | NUR ---
SHIFT SUMMARY PT A&OX4, VSS, PAIN MANAGED WITH 5 MG OXY PRN. MYRIAM PO, DENIES N&V. SHOWERED TODAY AND REDRESSED LLE. VOIDING WELL. REP MUCOUS BM; DENIES BROWN STOOL. BOWEL CARE INCREASED BY DR BENITEZ TO ENSURE PT HAS BM BEFORE POSS DC TOMORROW. RA. UP TO CHAIR. MOD ASSIST TO STAND, THEN SBA W/FWW & GB TO BRP. REPORT GIVEN TO ANDRIY KAPADIA.
--- NOTE | 2019-05-25 07:46 | NUR ---
SUMMARY NO ACUTE CHANGES NOTED THROUGH THE NIGHT. PT WAS GIVEN AN ENEMA AND BOWEL CARE MEDICATIONS ORDERED. HE WAS UNABLE TO HAVE BM. PT DENIES STOMACH PAIN, PASSING FLATUS, AND IS HAVING SMALL CLEAR MUCOUS STOOLS. IN THIS AM, LACTULOSE WAS ORDERED Q4. CALL LIGHT IN REACH, BED ALARM FOR SAFETY.
--- NOTE | 2019-05-25 14:15 | NUR ---
AFIB: PT CONVERTED TO AFIB AT 1340 PER REPLENISHMENT ASSOCIATE. VITAL SIGNS TAKEN, WNL. PT DENIES CHEST PAIN/PRESSURE, IS A/O. DR. BENITEZ NOTIFIED. NO NEW ORDERS. PT CONVERTED BACK TO NSR AT 1412. PT STABLE AND LYING IN BED.
--- NOTE | 2019-05-25 18:10 | NUR ---
DISCHARGE: DISCHARGE PAPERWORK COMPLETED BY PET HANDLER. IV DC'D, DRESSING AT L GONZALEZ CHANGED, CDI. TRANSPORT HERE AT 1805. PT LEFT UNIT AT 1810 VIA WITH TRANSPORT AND
--- NOTE | 2019-05-25 18:21 | NUR ---
REPORT GIVEN TO KANG JACOBS AT [facility].
--- NOTE | 2019-06-01 19:23 | NUR ---
IMM MAILED TO PATIENT
== END 2019-05-25 18:30 | DRG 184 ==
LOC: ER 14:46 → SURS 14:47
PROVIDERS: Emergency Medicine; Internal Medicine; ADMIT Surgery
DX: S22.42XA Multiple fractures of ribs, left side, initial encounter for closed fracture (principal); S27.329A Contusion of lung, unspecified, initial encounter; J91.8 Pleural effusion in other conditions classified elsewhere; J98.11 Atelectasis; Y93.53 Activity, golf; E78.5 Hyperlipidemia, unspecified; Z86.73 Personal history of transient ischemic attack (TIA), and cerebral infarction without residual deficits; Z85.46 Personal history of malignant neoplasm of prostate; F03.90 Unspecified dementia, unspecified severity, without behavioral disturbance, psychotic disturbance, mood disturbance, and anxiety; V86.69XA Passenger of other special all-terrain or other off-road motor vehicle injured in nontraffic accident, initial encounter; I10 Essential (primary) hypertension; G47.33 Obstructive sleep apnea (adult) (pediatric); I48.0 Paroxysmal atrial fibrillation; I49.5 Sick sinus syndrome; R09.02 Hypoxemia; D64.9 Anemia, unspecified; R33.9 Retention of urine, unspecified; N32.0 Bladder-neck obstruction; K59.03 Drug induced constipation; T40.605A Adverse effect of unspecified narcotics, initial encounter; I48.91 Unspecified atrial fibrillation; N40.1 Benign prostatic hyperplasia with lower urinary tract symptoms
CPT/HCPCS: 36415; 36600; 70450; 71045; 71046; 71260; 72125; 74177; 80053; 82803; 83690; 83735; 85025; 85610; 85730; 86850; 86900; 86901; 94762; 96374-59; 96375-59; 96376; 97110; 97161; 97165; 97530; 97535; 99285-25; G0378; G0480; J2405; J3010; Q9967

== ENCOUNTER → 2019-06-09 | Outpatient (CLI) | payer MEDICARE, OTHER | END | disposition home or self-care (01) | LOC: LAB 12:52 → LAB SHORT 12:52 | DX: Z51.89 Encounter for other specified aftercare (principal) | CPT/HCPCS: 87070; 87075; 87205 ==

== ENCOUNTER 2019-06-24 00:33 | Day surgery (SDC) | payer MEDICARE, OTHER | END 2019-06-24 22:44 | disposition home or self-care (01) | LOC: WOUND 00:33 | DX: L97.825 Non-pressure chronic ulcer of other part of left lower leg with muscle involvement without evidence of necrosis (principal); I87.2 Venous insufficiency (chronic) (peripheral); I10 Essential (primary) hypertension; I25.10 Atherosclerotic heart disease of native coronary artery without angina pectoris; G47.33 Obstructive sleep apnea (adult) (pediatric) | CPT/HCPCS: 87071; 87075; 87205; G0463 ==

== ENCOUNTER 2019-07-10 00:56 | Day surgery (SDC) | payer MEDICARE, OTHER | END 2019-07-10 23:29 | disposition home or self-care (01) | LOC: WOUND 00:56 | DX: L97.823 Non-pressure chronic ulcer of other part of left lower leg with necrosis of muscle (principal); L03.115 Cellulitis of right lower limb; I87.2 Venous insufficiency (chronic) (peripheral); I25.10 Atherosclerotic heart disease of native coronary artery without angina pectoris; G47.33 Obstructive sleep apnea (adult) (pediatric); I10 Essential (primary) hypertension; Z86.73 Personal history of transient ischemic attack (TIA), and cerebral infarction without residual deficits | CPT/HCPCS: 87070; 87075; 87077; 87205; G0463 ==

== ENCOUNTER 2019-07-17 01:58 | Day surgery (SDC) | payer MEDICARE, OTHER | END 2019-07-17 23:02 | disposition home or self-care (01) | LOC: WOUND 01:58 | DX: L97.823 Non-pressure chronic ulcer of other part of left lower leg with necrosis of muscle (principal); L03.115 Cellulitis of right lower limb; I25.10 Atherosclerotic heart disease of native coronary artery without angina pectoris; I10 Essential (primary) hypertension; G47.33 Obstructive sleep apnea (adult) (pediatric); M10.9 Gout, unspecified; M19.90 Unspecified osteoarthritis, unspecified site; Z86.73 Personal history of transient ischemic attack (TIA), and cerebral infarction without residual deficits ==

== ENCOUNTER 2019-07-24 00:56 | Day surgery (SDC) | payer MEDICARE, OTHER | END 2019-07-24 23:21 | disposition home or self-care (01) | LOC: WOUND 00:56 | DX: S81.802A Unspecified open wound, left lower leg, initial encounter (principal); L97.823 Non-pressure chronic ulcer of other part of left lower leg with necrosis of muscle; L03.115 Cellulitis of right lower limb; I87.2 Venous insufficiency (chronic) (peripheral); I10 Essential (primary) hypertension; I25.10 Atherosclerotic heart disease of native coronary artery without angina pectoris; V86.99XA Unspecified occupant of other special all-terrain or other off-road motor vehicle injured in nontraffic accident, initial encounter ==

== ENCOUNTER 2019-07-29 00:44 | Day surgery (SDC) | payer MEDICARE, OTHER | END 2019-07-29 22:55 | disposition home or self-care (01) | LOC: WOUND 00:44 | DX: L97.823 Non-pressure chronic ulcer of other part of left lower leg with necrosis of muscle (principal); I87.2 Venous insufficiency (chronic) (peripheral); I10 Essential (primary) hypertension; I25.10 Atherosclerotic heart disease of native coronary artery without angina pectoris; Z86.73 Personal history of transient ischemic attack (TIA), and cerebral infarction without residual deficits | CPT/HCPCS: G0463 ==

== ENCOUNTER 2019-08-11 00:12 | Day surgery (SDC) | payer MEDICARE, OTHER | END 2019-08-11 22:44 | disposition home or self-care (01) | LOC: WOUND 00:12 | DX: L97.823 Non-pressure chronic ulcer of other part of left lower leg with necrosis of muscle (principal); I87.2 Venous insufficiency (chronic) (peripheral); I10 Essential (primary) hypertension; I25.10 Atherosclerotic heart disease of native coronary artery without angina pectoris; G47.33 Obstructive sleep apnea (adult) (pediatric); D64.9 Anemia, unspecified; M10.9 Gout, unspecified; M19.90 Unspecified osteoarthritis, unspecified site; G62.9 Polyneuropathy, unspecified; Z86.73 Personal history of transient ischemic attack (TIA), and cerebral infarction without residual deficits; Z79.899 Other long term (current) drug therapy ==

== ENCOUNTER 2019-08-18 00:07 | Day surgery (SDC) | payer MEDICARE, OTHER | END 2019-08-18 22:41 | disposition home or self-care (01) | LOC: WOUND 00:07 | DX: L97.823 Non-pressure chronic ulcer of other part of left lower leg with necrosis of muscle (principal); S51.801A Unspecified open wound of right forearm, initial encounter; I87.2 Venous insufficiency (chronic) (peripheral); I25.10 Atherosclerotic heart disease of native coronary artery without angina pectoris; I10 Essential (primary) hypertension; G47.33 Obstructive sleep apnea (adult) (pediatric); Z86.73 Personal history of transient ischemic attack (TIA), and cerebral infarction without residual deficits; Z79.899 Other long term (current) drug therapy; X58.XXXA Exposure to other specified factors, initial encounter ==

== ENCOUNTER 2019-08-26 00:17 | Day surgery (SDC) | payer MEDICARE, OTHER | END 2019-08-26 23:03 | disposition home or self-care (01) | LOC: WOUND 00:17 | DX: L97.823 Non-pressure chronic ulcer of other part of left lower leg with necrosis of muscle (principal); S51.801A Unspecified open wound of right forearm, initial encounter; I87.2 Venous insufficiency (chronic) (peripheral); I10 Essential (primary) hypertension; G47.33 Obstructive sleep apnea (adult) (pediatric); I25.10 Atherosclerotic heart disease of native coronary artery without angina pectoris; Z86.73 Personal history of transient ischemic attack (TIA), and cerebral infarction without residual deficits; X58.XXXA Exposure to other specified factors, initial encounter; Z79.899 Other long term (current) drug therapy | CPT/HCPCS: G0463 ==

== ENCOUNTER 2019-09-03 00:21 | Day surgery (SDC) | payer MEDICARE, OTHER | END 2019-09-03 23:17 | disposition home or self-care (01) | LOC: WOUND 00:21 | DX: L97.823 Non-pressure chronic ulcer of other part of left lower leg with necrosis of muscle (principal); S51.801A Unspecified open wound of right forearm, initial encounter; I87.2 Venous insufficiency (chronic) (peripheral); I25.10 Atherosclerotic heart disease of native coronary artery without angina pectoris; G47.33 Obstructive sleep apnea (adult) (pediatric); I10 Essential (primary) hypertension; Z86.73 Personal history of transient ischemic attack (TIA), and cerebral infarction without residual deficits; X58.XXXA Exposure to other specified factors, initial encounter; Z79.899 Other long term (current) drug therapy | CPT/HCPCS: G0463 ==

== ENCOUNTER 2019-09-08 00:16 | Day surgery (SDC) | payer MEDICARE, OTHER | END 2019-09-08 22:43 | disposition home or self-care (01) | LOC: WOUND 00:16 | DX: L97.823 Non-pressure chronic ulcer of other part of left lower leg with necrosis of muscle (principal); I87.2 Venous insufficiency (chronic) (peripheral); I10 Essential (primary) hypertension; G47.33 Obstructive sleep apnea (adult) (pediatric); I25.10 Atherosclerotic heart disease of native coronary artery without angina pectoris; Z86.73 Personal history of transient ischemic attack (TIA), and cerebral infarction without residual deficits; Z79.899 Other long term (current) drug therapy | CPT/HCPCS: G0463 ==

== ENCOUNTER 2019-09-15 09:00 | Day surgery (SDC) | payer MEDICARE, OTHER | END 2019-09-15 23:02 | disposition home or self-care (01) | LOC: WOUND 09:00 | DX: L97.823 Non-pressure chronic ulcer of other part of left lower leg with necrosis of muscle (principal); I87.2 Venous insufficiency (chronic) (peripheral); I25.10 Atherosclerotic heart disease of native coronary artery without angina pectoris; I10 Essential (primary) hypertension; G47.33 Obstructive sleep apnea (adult) (pediatric); Z86.73 Personal history of transient ischemic attack (TIA), and cerebral infarction without residual deficits; Z79.899 Other long term (current) drug therapy | CPT/HCPCS: G0463 ==